=== PATIENT | female | born 1990 | race Caucasian/White ===

== ENCOUNTER 2018-04-20 10:53 | Emergency (ER) | payer OTHER ==
[~2018-04-20] VITALS: Ht 157.5 cm; Wt 64.4 kg
[2018-04-20 10:59] VITALS: BP 127/98; Ht 157.5 cm; Wt 64.4 kg
== END 2018-04-20 13:35 | disposition home or self-care (01) ==
LOC: ED 10:53
DX: S91.155A Open bite of left lesser toe(s) without damage to nail, initial encounter (principal); W53.11XA Bitten by rat, initial encounter; Y93.89 Activity, other specified; Y92.89 Other specified places as the place of occurrence of the external cause; Y99.8 Other external cause status
CPT/HCPCS: 90715